=== PATIENT | male | born 1970 | race Caucasian/White ===

== ENCOUNTER 2017-12-15 15:52 | Outpatient (CLI) | payer BC ==
--- NOTE | 2017-12-15 16:40 | RAD ---
TWO VIEWS OF THE LUMBOSACRAL SPINE: 12/15/17 COMPARISON: None. HISTORY: Chronic low back pain for two to three years. FINDINGS: Two views of the lumbosacral spine shows decreased height of the intervertebral disc, particularly in the upper lumbar spine. Moderate osteophytes are seen at L1-2 and vacuum phenomenon is seen at this level. Posterior facet arthrosis is seen at L4-5 and L5-S1. Alignment is unchanged with neutral and e xtension. IMPRESSION: Degenerative changes of the lumbar spine with unchanged alignment with extension. POS: [facility]
--- NOTE | 2017-12-15 17:25 | MRI ---
MRI OF THE LUMBAR SPINE WITHOUT CONTRAST: 12/15/17 COMPARISON: Lumbar radiograph 12/15/17. HISTORY: Chronic low back pain for two to three years. Lumbar disc herniation with radiculopathy. TECHNIQUE: Multiplanar and multisequence MRI images were obtained in the lumbar spine without contrast. FINDINGS: There is generalized disc desiccation and loss of intervertebral disc space height. End plate degener ative changes are seen at L1-2. Anterior osteophytes are seen in the upper lumbar spine. The conus me dullaris terminates normally at T12-L1. The prevertebral and paraspinal soft tissues are unremarkable . T12-L1: Unremarkable. L1-L2: A small disc osteophyte complex is seen. Mild to moderate bilateral posterior facet arthrosis. Mild central canal stenosis. No neural foraminal stenosis. L2-L3: A small disc osteophyte complex is seen. Moderate bilateral posterior facet arthrosis. Mild ce ntral canal stenosis. Mild to moderate bilateral neural foraminal stenosis. L3-L4: A minimal disc osteophyte complex is seen. Mild to moderate bilateral posterior facet arthrosi s. Mild central canal stenosis. Moderate bilateral neural foraminal stenosis, right greater than left . L4-L5: A small generalized concentric disc bulge is associated with high T2 signal which may represen t an annular tear. No posterior facet arthrosis. Mild central canal stenosis. No neural foraminal oanh nosis. L5-S1: Unremarkable. IMPRESSION: Degenerative changes of the lumbar spine as above. POS: [facility]
== END 2017-12-15 15:53 | disposition home or self-care (01) ==
LOC: SCSMRI 15:52
PROVIDERS: ATTEND Anesthesiology Pain Medicine
DX: M51.16 Intervertebral disc disorders with radiculopathy, lumbar region (principal); M47.896 Other spondylosis, lumbar region
CPT/HCPCS: 72100; 72148

== ENCOUNTER 2020-05-29 07:22 | Outpatient (CLI) | payer BC, OTHER ==
[2020-05-29 14:17] LABS: #Eosinphils 0.1 thou/uL (0.0-0.7); #Lymphocytes 1.5 thou/uL (1.20-3.40); #Monocytes 0.5 thou/uL (0.11-0.59); %Basophils 0.9 % (0.0-1.0); %Eosinophils 2.9 % (0.0-10.0); %Monocytes 9.3 % (0.0-10.0); %Neutrophils 57.9 % (42.0-75.0); Hemoglobin 15.4 g/dL (14.0-18.0); Mean Corpuscular HGB CONC 33.5 g/dL (32.0-36.0); Mean Corpuscular Hemoglobin 32.5 pg (27.0-31.0); Mean Corpuscular Volume 97.1 fL (78.0-98.0); Mean Platelet Volume 7.7 fL (7.4-10.4); Platelet Count 159 thou/uL (130-400); RBC Distribution Width 11.4 % (11.5-14.5); Red Blood Cell (RBC) Count 4.72 mill/uL (4.70-6.10); White Blood Cell (WBC) Count 5.1 thou/uL (4.8-10.8)
[2020-05-29 14:46] LABS: Anion Gap 12 mmol/L (10-20); BUN (Urea Nitrogen) 16 mg/dL (8.9-20.6); Calc. Creatinine Clearance 0 mL/min (70-130); Carbon Dioxide 28 mmol/L (22-29); Chloride 102 mmol/L (98-107); Estimated GFR-MDRD Greater than 90; Glucose 102 mg/dL (70-105); Potassium 4.1 mmol/L (3.5-5.1); Sodium 138 mmol/L (136-145)
[2020-05-30 11:57] LABS: SARS-CoV-2 MS2 Positive; SARS-CoV-2 N Gene Negative; SARS-CoV-2 S Gene Negative; SARS-CoV-2 by NAA Not Detected (NotDetected); SARS-CoV-2 orf1ab Negative
== END 2020-05-29 07:23 | disposition home or self-care (01) ==
LOC: LABBT 07:22
PROVIDERS: ATTEND Orthopaedic Surgery
DX: Z01.812 Encounter for preprocedural laboratory examination (principal); Z20.828 Contact with and (suspected) exposure to other viral communicable diseases; S46.212A Strain of muscle, fascia and tendon of other parts of biceps, left arm, initial encounter
CPT/HCPCS: 80048; 85025; 87635; U0003

== ENCOUNTER 2020-06-01 06:01 | Day surgery (SDC) | payer BC ==
[2020-05-30 12:32] VITALS: BMI 23.7
[2020-06-01] MEDS ORDERED: Lidocaine 1% (PF) 30 ML VIAL ONE (06:18)
[2020-06-01] MEDS ORDERED: Fentanyl 100 MCG/2 ML VIAL ONE ×3 (06:38→08:08)
[2020-06-01] MEDS ORDERED: Midazolam HCl 2 mg/2 ml Vial ONE ×2 (06:38→07:35)
[2020-06-01] MEDS ORDERED: Clindamycin/D5W 600 mg/50 ml Premix Bag ONE (06:51)
[2020-06-01] MEDS ORDERED: Bupivacaine HCl 0.5%/Epinephrine 1:200,000/PF 30 ml Vial ONE (08:19)
[2020-06-01] MEDS ORDERED: Meperidine HCl/PF 25 MG/ML VIAL ONE (08:47)
[2020-06-01] MEDS ORDERED: Ondansetron PF 4 MG/2 ML Vial ONE (09:08)
--- NOTE | 2020-06-01 11:24 | OP ---
DATE OF PROCEDURE: 06/01/2020 PROCEDURE PERFORMED: Left distal biceps repair. PREOPERATIVE DIAGNOSIS: Left distal biceps rupture. POSTOPERATIVE DIAGNOSIS: Left distal biceps rupture. EARLY CHILDHOOD LEAD TEACHER: Luis Angel Laureano PA-C BLOOD LOSS: Minimal. SPECIMEN: None. DRAINS: None. COMPLICATIONS: None. During this procedure, the dental front office assistant was necessary for positioning and holding the arm in supination, drilling over the pin, and pushing the tendon into the bone as the sutures were tied. DESCRIPTION OF PROCEDURE: Left arm was prepped and draped in the usual sterile fashion. After exsanguination, tourniquet was inflated to 250 mmHg. I made an oblique incision in the antecubital fossa. Dissection carried down through the fascia and lacertus. I identified the distal stump of the biceps. I trimmed it down to size 7. This was then sutured with a Krackow suture using a FiberLoop from [employer]. I identified the radial tubercle. A guidepin was placed through the tubercle and a 7-mm hole was drilled through one cortex. Irrigation was performed. The Toggle device was placed through the far cortex, deployed, and then I pulled the tendon down into the defect and the bone sutured back to itself with excellent repair. Tourniquet released. Irrigation was performed. Hemostasis was obtained. The skin was closed with 2-0 Vicryl and cathy. Sterile dressing was applied. The patient was placed in a splint. Job ID: [id number]
[2020-06-01] MEDS ORDERED: Ketorolac Tromethamine 30 MG/ML VIAL ONE (13:52)
[2020-06-01] MEDS ORDERED: Lidocaine 1% PF 5 ML VIAL ONE (13:52)
[2020-06-01] MEDS ORDERED: PROPOFOL 200 MG/20 ML VIAL ONE (13:52)
== END 2020-06-01 10:25 | disposition home or self-care (01) ==
LOC: SDC 06:01
PROVIDERS: ATTEND Orthopaedic Surgery
PROC: 0LM40ZZ Reattachment of Left Upper Arm Tendon, Open Approach (ICD-10-PCS; principal; 2020-06-01)
DX: S46.212A Strain of muscle, fascia and tendon of other parts of biceps, left arm, initial encounter (principal); F32.9 Major depressive disorder, single episode, unspecified; Z79.899 Other long term (current) drug therapy; Z88.1 Allergy status to other antibiotic agents; Z88.0 Allergy status to penicillin
CPT/HCPCS: C1713; J0670; J1885; J2001; J2175; J2250; J2405; J2704; J3010; J3490

== ENCOUNTER 2022-07-27 09:02 | Inpatient (IN) | payer BC ==
[2022-07-27] MEDS ORDERED: Midazolam HCl 2 mg/2 ml Vial ONE ×2 (11:47→12:02)
[2022-07-27] MEDS ORDERED: FENTANYL 50 MCG/ML 1 ML VIAL ONE ×2 (11:47→12:02)
[2022-07-27] MEDS ORDERED: Dexamethasone 10 MG/ML VIAL ONE (11:47)
[2022-07-27 12:35] LABS: #Basophils 0.1 thou/uL (0.0-0.2); #Eosinphils 0.1 thou/uL (0.0-0.7); #Lymphocytes 1.6 thou/uL (1.20-3.40); #Monocytes 0.4 thou/uL (0.11-0.59); #Neutrophils 4.2 thou/uL (1.40-6.50); %Basophils 0.8 % (0.0-1.0); %Eosinophils 0.8 % (0.0-10.0); %Lymphocytes 25.2 % (21.0-51.0); %Monocytes 6.6 % (0.0-10.0); %Neutrophils 66.5 % (42.0-75.0); Hemoglobin 14.2 g/dL (14.0-18.0); Mean Corpuscular HGB CONC 33.2 g/dL (32.0-36.0); Mean Corpuscular Hemoglobin 32.4 pg (27.0-31.0); Mean Corpuscular Volume 97.7 fl (78.0-98.0); Mean Platelet Volume 7.3 fL (7.4-10.4); Platelet Count 171 10x3/uL (130-400); RBC Distribution Width 11.5 % (11.5-14.5); Red Blood Cell (RBC) Count 4.38 mill/uL (4.70-6.10); White Blood Cell (WBC) Count 6.3 10x3/uL (4.8-10.8)
[2022-07-27 12:47] LABS: INR-International Normal Ratio 1.1; Prothrombin Time 14.1 sec (12.0-14.7)
[2022-07-27 12:57] LABS: ALT (SGPT) 12 U/L (8-55); AST (SGOT) 16 U/L (5-34); Albumin 4.1 g/dL (3.5-5.0); Alkaline Phosphatase 56 U/L (40-110); Anion Gap 12 mmol/L (10-20); BUN (Urea Nitrogen) 14 mg/dL (8.9-20.6); Bilirubin, Total 0.9 mg/dL (0.2-1.2); Calc. Creatinine Clearance 0 mL/min (70-130); Calcium 8.9 mg/dL (7.8-10.44); Carbon Dioxide 26 mmol/L (22-29); Chloride 104 mmol/L (98-107); Estimated GFR 109; Globulin 1.9 g/dL (2.4-3.5); Glucose 89 mg/dL (70-105); Potassium 3.6 mmol/L (3.5-5.1); Sodium 138 mmol/L (136-145)
[2022-07-27 14:12] LABS: Bilirubin Negative (Negative); Blood, Urine Negative (Negative); Clarity Clear (Clear); Glucose, Urine (Dipstick) Normal (Negative); Ketone, Urine Negative (Negative); Leukocyte Negative Leu/uL (Negative); Nitrite Negative (Negative); Protein, Urine (Dipstick) Negative (Neg-Trace); Specific Gravity, Urine 1.007 (1.002-1.036); Urobilinogen Normal mg/dL (Less than 2); pH, Urine 6.5 (5.0-9.0)
[2022-07-27] MEDS ORDERED: Bisacodyl 5 MG TAB PO PRN (14:43)
[2022-07-27] MEDS: Acetaminophen 500 MG TAB PO SCH ×2 (18:29→20:51)
[2022-07-27] MEDS: Dexamethasone 4 mg/ml Vial SLOW IVP SCH (18:29)
[2022-07-27] MEDS: Senokot S 8.6-50 MG TAB PO PRN (18:31)
[2022-07-27 19:22] VITALS: BMI 23.0
[2022-07-27] MEDS: Famotidine 20 MG TAB PO SCH (20:53)
[2022-07-28] MEDS: Dexamethasone 4 mg/ml Vial SLOW IVP SCH ×4 (00:12→18:22)
[2022-07-28 05:59] LABS: #Lymphocytes 0.8 thou/uL (1.20-3.40); #Monocytes 0.3 thou/uL (0.11-0.59); #Neutrophils 9.6 thou/uL (1.40-6.50); %Basophils 0.1 % (0.0-1.0); %Eosinophils 0.2 % (0.0-10.0); %Monocytes 2.7 % (0.0-10.0); Hemoglobin 14.3 g/dL (14.0-18.0); Mean Corpuscular HGB CONC 33.9 g/dL (32.0-36.0); Mean Corpuscular Hemoglobin 33.1 pg (27.0-31.0); Mean Corpuscular Volume 97.7 fl (78.0-98.0); Mean Platelet Volume 7.1 fL (7.4-10.4); Platelet Count 180 10x3/uL (130-400); RBC Distribution Width 11.4 % (11.5-14.5); Red Blood Cell (RBC) Count 4.32 mill/uL (4.70-6.10); White Blood Cell (WBC) Count 10.7 10x3/uL (4.8-10.8)
[2022-07-28 06:21] LABS: Anion Gap 9 mmol/L (10-20); BUN (Urea Nitrogen) 13 mg/dL (8.9-20.6); Calc. Creatinine Clearance 122 mL/min (70-130); Calcium 9.3 mg/dL (7.8-10.44); Carbon Dioxide 27 mmol/L (22-29); Chloride 106 mmol/L (98-107); Estimated GFR 108; Glucose 139 mg/dL (70-105); Potassium 4.1 mmol/L (3.5-5.1); Sodium 138 mmol/L (136-145)
[2022-07-28] MEDS ORDERED: FLU VACC QS2022-23(6MOS UP)/PF 60 MCG/0.5 ML SYRINGE IM ONE (09:00)
[2022-07-28] MEDS: oxyCODONE 5 MG TAB PO PRN (09:35)
[2022-07-28] MEDS: Acetaminophen 500 MG TAB PO SCH ×3 (09:36→20:46)
[2022-07-28] MEDS: Enoxaparin Sodium 40 MG/0.4 ML SYRINGE SC SCH ×2 (09:37→09:44)
[2022-07-28] MEDS: Famotidine 20 MG TAB PO SCH ×2 (09:37→20:47)
[2022-07-28] MEDS: Senokot S 8.6-50 MG TAB PO PRN (09:40)
[2022-07-29] MEDS: Dexamethasone 4 mg/ml Vial SLOW IVP SCH ×5 (00:53→23:44)
[2022-07-29] MEDS: Acetaminophen 500 MG TAB PO SCH ×3 (08:13→19:58)
[2022-07-29] MEDS: Famotidine 20 MG TAB PO SCH ×2 (08:14→20:01)
[2022-07-29] MEDS ORDERED: Morphine 4 MG/ML VIAL SLOW IVP PRN (09:10)
[2022-07-29] MEDS: oxyCODONE 5 MG TAB PO PRN ×2 (09:47→19:59)
[2022-07-29 16:39] LABS: SARS-CoV-2 NAA Rapid Test Not Detected (NotDetected)
[2022-07-30] MEDS: Dexamethasone 4 mg/ml Vial SLOW IVP SCH ×4 (05:31→23:40)
[2022-07-30] MEDS ORDERED: Thrombin 5000 UNITS/5 ML VIAL ONE (06:27)
[2022-07-30] MEDS ORDERED: fentaNYL PF 100 MCG/2 ML SYRINGE ONE (06:55)
[2022-07-30] MEDS ORDERED: Midazolam HCl 2 mg/2 ml Vial ONE (07:23)
[2022-07-30] MEDS ORDERED: CEFAZOLIN 2 GM VIAL ONE (07:31)
[2022-07-30] MEDS ORDERED: Sodium Chloride 0.9% 100 ML ONE (07:31)
[2022-07-30] MEDS ORDERED: Ketorolac Tromethamine 30 MG/ML VIAL ONE (07:38)
[2022-07-30] MEDS ORDERED: Rocuronium Bromide 10 MG/ML (10ML VIAL) ONE (07:38)
[2022-07-30] MEDS ORDERED: PROPOFOL 200 MG/20 ML VIAL ONE (07:38)
[2022-07-30] MEDS ORDERED: Ondansetron PF 4 MG/2 ML Vial ONE (07:38)
[2022-07-30] MEDS ORDERED: NEOSTIGMINE 3 MG/3 ML SYR 3 MG/3 ML SYRINGE ONE (07:38)
[2022-07-30] MEDS ORDERED: Glycopyrrolate 0.2 MG/ML 5 ML SYRINGE ONE (07:38)
[2022-07-30] MEDS ORDERED: Vecuronium 10 MG VIAL ONE (07:38)
[2022-07-30] MEDS ORDERED: Phenylephrine 10 MG/ML VIAL ONE (07:38)
[2022-07-30] MEDS ORDERED: Dexamethasone 20 MG/5 ML VIAL ONE (07:38)
[2022-07-30] MEDS: Acetaminophen 500 MG TAB PO SCH ×3 (09:02→20:49)
[2022-07-30] MEDS: Famotidine 20 MG TAB PO SCH ×2 (09:02→20:49)
[2022-07-30] MEDS ORDERED: PHENYLEPHRINE-NS 100 MCG/ML 10 ML SYRINGE ONE (09:20)
[2022-07-30] MEDS ORDERED: Promethazine HCl 25 MG/ML VIAL IM PRN (09:43)
[2022-07-30] MEDS ORDERED: HYDROmorphone 2 MG/ML VIAL SLOW IVP PRN (09:43)
[2022-07-30] MEDS ORDERED: Ondansetron HCl/PF 4 MG/2 ML Vial IVP PRN (09:43)
[2022-07-30] MEDS ORDERED: PACU-Morphine 4MG/ML VIAL SLOW IVP PRN (09:43)
[2022-07-30] MEDS ORDERED: Morphine Sulfate 2 MG/ML SYRINGE SLOW IVP PRN (09:43)
[2022-07-30] MEDS ORDERED: Promethazine HCl 25 MG/ML VIAL IVPB PRN (09:43)
[2022-07-30] MEDS ORDERED: HYDROmorphone 2 MG/ML VIAL ONE (10:04)
[2022-07-30] MEDS ORDERED: diphenhydrAMINE 25 MG CAP PO PRN (10:40)
[2022-07-30] MEDS ORDERED: HYDROcodone/Acetaminophen 7.5/325 mg Tablet PO PRN (10:40)
[2022-07-30] MEDS ORDERED: Acetaminophen 325 MG TAB PO PRN (10:40)
[2022-07-30] MEDS ORDERED: Ondansetron PF 4 MG/2 ML Vial IVP PRN (10:40)
[2022-07-30] MEDS ORDERED: hydrALAZINE 20 MG/ML VIAL SLOW IVP PRN (10:43)
[2022-07-30] MEDS ORDERED: Morphine 4 MG/ML VIAL SLOW IVP PRN (10:44)
[2022-07-30] MEDS: Sodium Chloride 0.9% 1,000 ML IV SCH (11:29)
[2022-07-30] MEDS ORDERED: Promethazine HCl 25 MG in Sodium Chloride 0.9% 50 ML IVPB PRN (13:38)
[2022-07-30] MEDS: oxyCODONE 5 MG TAB PO PRN ×2 (14:29→22:06)
[2022-07-30] MEDS: CEFAZOLIN 2 GM in Sodium Chloride 0.9% 100 ML IVPB SCH ×2 (16:40→23:40)
[2022-07-30] MEDS: Acetaminophen/Codeine 30-300mg Tablet PO PRN (17:53)
[2022-07-30] MEDS: traMADol HCl 50 MG TAB PO PRN (20:47)
[2022-07-31] MEDS: Sodium Chloride 0.9% 1,000 ML IV SCH ×3 (00:02→20:53)
[2022-07-31] MEDS: oxyCODONE 5 MG TAB PO PRN ×3 (02:08→20:31)
[2022-07-31] MEDS: traMADol HCl 50 MG TAB PO PRN ×2 (05:30→15:06)
[2022-07-31] MEDS: Senokot S 8.6-50 MG TAB PO PRN (05:31)
[2022-07-31] MEDS: Dexamethasone 4 mg/ml Vial SLOW IVP SCH ×4 (05:32→23:58)
[2022-07-31] MEDS: Acetaminophen 500 MG TAB PO SCH ×3 (09:36→20:31)
[2022-07-31] MEDS: Famotidine 20 MG TAB PO SCH ×2 (09:36→20:31)
[2022-07-31] MEDS: Cyclobenzaprine 10 MG TAB PO PRN (17:49)
[2022-07-31 20:39] VITALS: TEMP 97.7
[2022-08-01] MEDS: Cyclobenzaprine 10 MG TAB PO PRN ×2 (02:24→10:27)
[2022-08-01] MEDS: Dexamethasone 4 mg/ml Vial SLOW IVP SCH ×2 (06:13→11:05)
[2022-08-01] MEDS: Senokot S 8.6-50 MG TAB PO PRN (08:33)
[2022-08-01] MEDS: Famotidine 20 MG TAB PO SCH (08:33)
[2022-08-01] MEDS: Acetaminophen 500 MG TAB PO SCH (08:33)
[2022-08-01 08:49] VITALS: BP 111/65
[2022-08-01] MEDS: Acetaminophen/Codeine 30-300mg Tablet PO PRN (11:04)
== END 2022-08-01 11:30 | disposition home or self-care (01) | DRG 520 ==
LOC: ERS 09:02 → MSONC 16:31 → OBSVTOIN 07-29 05:46
PROVIDERS: ADMIT Family Medicine; ATTEND Family Medicine
PROC: 3E0R3BZ Introduction of Anesthetic Agent into Spinal Canal, Percutaneous Approach (ICD-10-PCS; 2022-07-27)
PROC: 3E0R33Z Introduction of Anti-inflammatory into Spinal Canal, Percutaneous Approach (ICD-10-PCS; 2022-07-27)
PROC: 0SB20ZZ Excision of Lumbar Vertebral Disc, Open Approach (ICD-10-PCS; principal; 2022-07-30)
PROC: 01NB0ZZ Release Lumbar Nerve, Open Approach (ICD-10-PCS; 2022-07-30)
DX: M48.061 Spinal stenosis, lumbar region without neurogenic claudication (principal); M51.26 Other intervertebral disc displacement, lumbar region; G89.29 Other chronic pain; Y83.8 Other surgical procedures as the cause of abnormal reaction of the patient, or of later complication, without mention of misadventure at the time of the procedure; R11.0 Nausea; Z88.1 Allergy status to other antibiotic agents; Z28.21 Immunization not carried out because of patient refusal; Z88.8 Allergy status to other drugs, medicaments and biological substances; Z79.899 Other long term (current) drug therapy; Z98.890 Other specified postprocedural states
CPT/HCPCS: 36415; 72131; 72148; 80048; 80053; 81003; 85025; 85610; 85730; 96376; C1713; C1776; G0378; J1100; J1170; J1650; J2250; J2405; J2550; J3010; J3370; J3490; J7050; U0002